=== PATIENT | female | born 1940 | race Caucasian/White ===

== ENCOUNTER → 2024-01-12 14:23 | Outpatient (REF) | payer OTHER, SELFPAY | LOC: RAD 14:23 | PROVIDERS: ATTENDING PHYSICIAN Internal Medicine | DX: R05.1 Acute cough (principal) | CPT/HCPCS: 71046 ==

== ENCOUNTER → 2024-03-15 14:45 | Outpatient (REF) | payer OTHER, SELFPAY | LOC: DHVS 14:45 | PROVIDERS: ATTENDING PHYSICIAN Surgery Vascular Surgery; FAMILY PHYSICIAN Family Medicine | DX: I77.9 Disorder of arteries and arterioles, unspecified (principal) | CPT/HCPCS: 93922; 93925 ==

== ENCOUNTER → 2024-04-02 15:14 | Outpatient (REF) | payer OTHER, SELFPAY | LOC: RAD 15:14 | PROVIDERS: ATTENDING PHYSICIAN Physician Assistant | DX: J44.9 Chronic obstructive pulmonary disease, unspecified (principal); I50.9 Heart failure, unspecified | CPT/HCPCS: 71046 ==

== ENCOUNTER 2024-08-04 18:59 | Emergency (ER) | payer OTHER, SELFPAY ==
[2024-08-04 18:59] VITALS: BMI 40.8
[2024-08-04 19:08] VITALS: BP 166/103
--- NOTE | 2024-08-04 19:10 | ED.PDOC.TRB ---
ED Provider Triage
-
Patient seen by provider in Triage?: Seen in Triage
This is a 83 year old female that was carrying her salid to the table and fell hitting her face and head on the carpet. Patient c/o bilateral knee swelling and pain, facial bleeding. Patient is on a blood thinner.
--- NOTE | 2024-08-04 19:17 | EDRN ---
face cleaned of dried blood and nasal bridge bandage placed.
[2024-08-04 21:43] VITALS: BP 184/75
[2024-08-04 22:00] VITALS: BP 176/77
--- NOTE | 2024-08-04 22:58 | ED.GENMED ---
History of Present Illness
General
Chief Complaint: Fall
Time Seen by Provider: 08/04/24 21:11
History of Present Illness
History of Present Illness:
83-year-old female presents to the emergency department for evaluation of multiple injuries after falling in her kitchen. States she was carrying a salad when she tripped and fell, striking her face on the ground. Denies loss of conscious. Does
take aspirin and Plavix. Also has injuries to the left hand and right elbow. Last tetanus shot was approximately 4 months ago
Past History
Past History
ED Past Medical History: CAD, CHF, COPD, HTN, Hypercholesterolemia, [place], Psychiatric (depression) and Other (gout, ,Chronic kidney disease, Pulmonary edema)
ED Past Surgical History: Cholecystectomy, Orthopedic and Other
Social History
Tobacco: Former smoker
Alcohol: Occasional
Drug: None
Personal:
Living: alone
Review of Systems
Review of Systems
Allergies reviewed?: Yes
All Other Systems: ROS reviewed and negative except as documented in HPI and ROS
Phy Exam
Physical Exam
Physical Exam:
GEN: Well appearing, NAD, WDWN
Eyes: PERRLA, EOMs intact, no scleral icterus. Diffuse bruising across the nasal bridge with a small superficial laceration actively bleeding. There is no nasal septal hematoma
HENT: NCAT, oral mucosa moist. Evidence of dried blood to the roof of the mouth, no obvious dental injuries
Lungs: CTAB, no wheezes, rales, rhonchi, normal chest wall excursion
Cardiac: RRR, no M/R/G, no peripheral edema. Radial pulses 2+ bilat
Abdomen: S, NT, ND, NABS, no masses or hepatosplenomegaly
Neuro: AO x 3, no focal deficits to BUE/BLE, normal sensation throughout
MSK: Diffuse swelling and ecchymosis volar hand with a superficial skin tear overlying the second MCP joint. Range of motion is normal. The right skin tear
Skin: No rashes, petechiae. Normal color, no pallor or jaundice.
Psych: Calm, cooperative, proper hygiene
Course
Orders/Labs/Results
Orders:
Orders
08/04/24 19:[address] Facial Bones W/o Iv Contras Urgent
Comment:
Reason For Exam: Fall onto face.
CT Head W/o Iv Contrast Urgent
Comment:
Reason For Exam: Fall, Blood thinners
Knee, Left 4 or More Views [CR Knee - Left 4 Or More View*] Urgent
Comment:
Reason For Exam: fall, knee pain
Knee, Right 4 or More Views [CR Knee- Right 4 Or More View*] Urgent
Comment:
Reason For Exam: Fall, knee pain
08/04/24 22:10
CR Elbow - Right Min 3 Views Urgent
Comment:
Reason For Exam: fall
CR Hand - Left Min 3 Views Urgent
Comment:
Reason For Exam: fall
08/04/24 22:28
Tranexamic Acid 1,000 mg INH R NOW STA
08/04/24 23:00
Acetaminophen [Tylenol] 1,000 mg PO NOW STA
08/04/24 23:26
Complete Blood Count/No Diff Urgent
Comprehensive Metabolic Panel Urgent
Abnormal Lab Results
08/04/24
23:26
WBC 12.9 H 10^3/uL
(4.8-10.8)
RBC 3.41 L 10^6/uL
(4.20-5.40)
Hct 34.1 L %
(37.0-47.0)
MCV 100.0 H fL
(81.0-99.0)
MCH 35.2 H pg
(27.0-31.0)
08/04/24 23:26
Vital Signs
Initial and Last Documented VS:
Initial Vital Signs
Temp Pulse Resp BP Pulse Ox
98.5 F 87 16 166/103 95
08/04/24 19:08 08/04/24 19:08 08/04/24 19:08 08/04/24 19:08 08/04/24 19:08
Last Documented Vital Signs
Temp Pulse Resp BP Pulse Ox
98.5 F 87 16 176/77 95
08/04/24 19:08 08/04/24 19:08 08/04/24 19:08 08/04/24 22:00 08/04/24 22:00
MDM/Problems Addressed
MDM/Problems Addressed:
Trauma imaging shows no evidence for intracranial hemorrhage or facial bone fracture. There is an abnormal lucency in the maxillary spine that is likely of dental origin and the patient is advised to follow-up with dentist as an outpatient for
further workup of this abnormality. No evidence of fractures imaging of the extremities. Skin tear of the left hand was approximated with Steri-Strips. Patient does not feel comfortable going home tonight however is not open to the consideration
of rehab. She simply feels as though she needs to be observed as she feels somewhat unsteady and fatigued. This is not unreasonable given her advanced age and the fact she resides at home alone. Patient will remain as an ED hold until the morning
with therapy to evaluate the patient however I do feel that she is most likely suitable to be discharged home at which time her family is able to pick her up in the morning.
*Critical Care Note
Total Time (30-74mins, 75-104mins- exclusive of procedures): Not Applicable
ED Attending Note
-
Portions of this chart may have been created with voice recognition software.� Occasional wrong word or��sound alike� substitutions may have occurred due to the inherent limitations of voice recognition software.
Discharge Plan
Departure
Patient Disposition: Home (Routine Discharge)
Date of Disposition: 08/04/24
Time of Disposition: 23:52
Patient with high blood pressure during this ER visit?: No
Discharge Problem:
Contusion of face, Laceration of nose, Skin tear of left hand without complication, Contusion of knee, right, Contusion of knee, left
Instructions: Preventing falls in adults
Prescriptions:
No Action
allopurinol 100 MG tablet
100 mg PO BID
albuterol sulfate 1 PUFF HFA aerosol inhaler
2 puff inhalation R Q4HPRN PRN (Reason: sob)
ezetimibe 10 MG tablet
10 mg PO DAILY
atorvastatin 80 MG tablet
80 mg PO HS
aspirin 81 MG tablet,delayed release (DR/EC)
81 mg PO DAILY
Theragen Tablet
1 tab PO DAILY
lorazepam 0.5 mg tablet
0.5 mg PO Q8H PRN (Reason: mood/sleep )
Patient Comments:
08/04/24: last filled 03/07/23 for 90 tablets at [facility] pharmacy
gabapentin 100 mg capsule
200 mg PO BID
paroxetine HCl 40 mg tablet
40 mg PO DAILY
bupropion HCl 150 mg tablet extended release 24 hr
150 mg PO DAILY
clonidine HCl 0.1 MG tablet
0.2 mg PO BID
diltiazem HCl 240 MG capsule,extended release 24hr
240 mg PO DAILY
clopidogrel 75 MG tablet
75 mg PO DAILY
spironolactone 25 MG tablet
25 mg PO DAILY
furosemide 40 mg Tablet
40 mg PO DAILY
hydralazine 100 mg Tablet
100 mg PO BID
Breztri Aerosphere 160-9-4.8 mcg/actuation HFA aerosol inhaler
2 inh INHALATION R BID
tetrahydrozoline [Visine] 0.05 % Drops
1 drp BOTH EYES QIDPRN PRN (Reason: dry eyes)
loratadine [Claritin] 10 mg Tablet
10 mg PO DAILYPRN PRN (Reason: allergies)
Referrals:
Daniella Marquez MD [Family Provider] -
Activity Restrictions/Additional Instructions:
The steri strips will fall off on their own in 5-7 days. You may begin washing in 24 hours (08/05/2024 evening). Wash the wounds daily with soap and water
Follow up with your dentist regarding the abnormal CT scan finding
Interventions
Interventions:
*General Assessment Last Done: 08/04/24 21:41
ED- Fall Risk Assessment Last Done: 08/04/24 21:43
*ED COVID-19 Vaccine History Last Done: 08/04/24 21:41
ED-Musculoskeletal Assessment Last Done: 08/04/24 21:36
ED- Neurological Assessment Last Done: 08/04/24 21:36
ED-Skin Assessment Last Done: 08/04/24 21:36
Discharge Date and Time
Print Language: FRENCH
[2024-08-04] MEDS: TYLENOL 1000 MG PO (23:08)
[2024-08-04] MEDS: TRANEXAMIC ACID 1000 MG INH (23:09)
[2024-08-04 23:16] VITALS: BP 182/78
[2024-08-04 23:47] LABS: Hematocrit 34.1 % (37.0-47.0); Mean Corp Hgb Conc. 35.2 g/dL (33.0-37.0); Mean Corpuscular Hgb 35.2 pg (27.0-31.0); Mean Platelet Volume 9.2 fL (7.4-10.4); Platelet Count 303 10^3/uL (130-400); Red Blood Cell Count 3.41 10^6/uL (4.20-5.40); White Blood Cell Count 12.9 10^3/uL (4.8-10.8)
[2024-08-04 23:55] LABS: ALT (SGPT) 24 U/L (0-35); AST (SGOT) 34 U/L (14-36); Albumin 4.2 g/dl (3.5-5.0); Alkaline Phosphatase 145 U/L (38-126); Blood Urea Nitrogen 33 mg/dl (7-17); Calcium 9.9 mg/dl (8.4-10.2); Carbon Dioxide 29 mmol/L (22-30); Chloride 95 mmol/L (98-107); Estimated Creatinine Clearance 35 ml/min; Glucose 94 mg/dl (70-99); Potassium 4.3 mmol/L (3.5-5.1); Sodium 134 mmol/L (135-145); Total Bilirubin 0.9 mg/dl (0.2-1.3); Total Protein 6.8 g/dl (6.3-8.2)
[2024-08-05 00:20] VITALS: BP 160/76
[2024-08-05] MEDS: LIPITOR 80 MG PO (00:32)
[2024-08-05] MEDS: NEURONTIN 200 MG PO ×2 (00:32→07:39)
[2024-08-05 01:00] VITALS: BP 171/74
[2024-08-05] MEDS: SYMBICORT 160/4.5 MCG INHALER 2 PUFF INH ×2 (01:37→08:15)
[2024-08-05 02:00] VITALS: BP 175/69
[2024-08-05] MEDS: APRESOLINE 100 MG PO ×2 (02:08→07:38)
[2024-08-05] MEDS: CATAPRES 0.2 MG PO ×2 (02:08→09:39)
[2024-08-05] MEDS: TYLENOL 650 MG PO ×2 (03:43→07:38)
[2024-08-05 07:14] VITALS: BP 157/61
[2024-08-05] MEDS: ALDACTONE 25 MG PO (07:39)
[2024-08-05] MEDS: PLAVIX 75 MG PO (07:39)
[2024-08-05] MEDS: CARDIZEM CD 240 MG PO (07:39)
[2024-08-05] MEDS: WELLBUTRIN SR (12 hour sustained release) 150 MG PO (08:44)
[2024-08-05] MEDS: ZETIA 10 MG PO (08:44)
[2024-08-05] MEDS: PAXIL 40 MG PO (08:45)
[2024-08-05 09:13] VITALS: BP 164/69; PULSE 82; O2SAT 95
--- NOTE | 2024-08-05 09:26 | CM ---
nurse unit manager reviewed patient's chart and met with patient and patient lives alone in a 2 story home, with 1 step to enter, patient is independent with adl's and uses a cane or walker with ambulation, patient drives. Patient was seen by physical
therapy and recommendation is for home, no needs. nurse unit manager discussed visiting nurses after discharge and patient declined visiting nurses.
Pharmacy: [facility]
PCP: Dr. Marquez
Plan; Patient to return to home at discharge, no needs, per patient her son will pick her up when cleared by physician.
--- NOTE | 2024-08-05 10:32 | PTCARENOTE ---
Pt walked w/ PT/OT, cleared to go home w/ son. Discharge underway, awaiting her ride. VSS. Varying traumatic injuries stable, no active bleeding. PT states she is comfortable.
[2024-08-05 11:02] VITALS: BP 133/75
== END 2024-08-05 11:37 | disposition home or self-care (01) ==
LOC: EMR 18:59
PROVIDERS: Physician Assistant; EMERGENCY PHYSICIAN Student in an Organized Health Care Education/Training Program; FAMILY PHYSICIAN Family Medicine
DX: S01.21XA Laceration without foreign body of nose, initial encounter (principal); S61.412A Laceration without foreign body of left hand, initial encounter; S59.901A Unspecified injury of right elbow, initial encounter; S80.01XA Contusion of right knee, initial encounter; S80.02XA Contusion of left knee, initial encounter; W01.0XXA Fall on same level from slipping, tripping and stumbling without subsequent striking against object, initial encounter; I13.0 Hypertensive heart and chronic kidney disease with heart failure and stage 1 through stage 4 chronic kidney disease, or unspecified chronic kidney disease; I50.9 Heart failure, unspecified; N18.9 Chronic kidney disease, unspecified; E78.00 Pure hypercholesterolemia, unspecified; F32.A Depression, unspecified; I25.10 Atherosclerotic heart disease of native coronary artery without angina pectoris; J44.9 Chronic obstructive pulmonary disease, unspecified; Z79.82 Long term (current) use of aspirin; Z87.891 Personal history of nicotine dependence; Z90.49 Acquired absence of other specified parts of digestive tract
CPT/HCPCS: 99284; 94640; 70450; 70486; 73080; 73130; 73564; 80053; 85027

== ENCOUNTER 2025-02-02 04:56 | Emergency (ER) | payer OTHER, SELFPAY ==
[2025-02-02 04:58] VITALS: BP 178/80
[2025-02-02 05:19] VITALS: BMI 41.3
[2025-02-02] MEDS: TYLENOL 1000 MG PO (05:30)
[2025-02-02] MEDS: ULTRAM 50 MG PO (06:44)
--- NOTE | 2025-02-02 06:47 | ED.GENMED ---
History of Present Illness
General
Chief Complaint: Musculo-Skeletal Complaint
Source: patient and family
Exam Limitations: none
Time Seen by Provider: 02/02/25 06:03
Nursing documentation reviewed up to this point in time: agreed with
History of Present Illness
History of Present Illness:
The patient is a pleasant 84-year-old female with a past medical history of coronary artery disease, COPD, and CHF who comes in with complaints of right wrist pain after a fall that occurred at 11 PM last night. Patient reports that when she got
into bed last night, she felt slightly dizzy and held onto a post on her bed frame. Unfortunately, the top of the post broke off, causing her to fall down to the ground. Patient reports she may have hit her head on the wall. She was able to get
up and walk down the steps after the fall. The patient denies headache and scalp pain. She denies any new neck pain and back pain. She denies chest pain. She denies hip pain. Patient complains of isolated right wrist pain. She denies any
recent injuries such as fever, nausea, vomiting, chest pain and shortness of breath. She reports that the medication she takes before bedtime commonly makes her feel dizzy and she does not seem to feel that this dizziness was out of the ordinary.
She denies vision changes, weakness and numbness. Patient is not on anticoagulation
Past History
Past History
ED Past Medical History: CAD, CHF, COPD, HTN, Hypercholesterolemia, [place], Psychiatric (depression) and Other (gout, ,Chronic kidney disease, Pulmonary edema)
ED Past Surgical History: Cholecystectomy, Orthopedic and Other
Social History
Tobacco: Former smoker
Alcohol: Occasional
Drug: None
Personal:
Living: alone
Employment: Other
Family History
Family History: Other
Review of Systems
Review of Systems
Allergies reviewed?: Yes
Other source history: family
All Other Systems: ROS reviewed and negative except as documented in HPI and ROS
Constitutional: Reports no symptoms
EENT: Reports no symptoms
Respiratory: Reports no symptoms
Cardiac: Reports no symptoms
ABD/GI: Reports no symptoms
: Reports no symptoms
Musculoskeletal: Reports no symptoms
Skin: Reports no symptoms
Neurological: Reports dizzy (not currently. frequently at night after she takes her meds)
Endocrine: Reports no symptoms
Hematologic/Lymphatic: Reports no symptoms
Psychiatric: Reports no symptoms
Phy Exam
Physical Exam
Physical Exam:
Physical Exam
General: no apparent distress, not acutely ill. Atraumatic appearing face and head. I cannot palpate any scalp contusions or areas of scalp tenderness.
Neck: supple. no meningeal signs. normal psoterior pharynx. Nontender
Heart: s1/s2 regular rate and rhythm, no chest wall tenderness. No reproducible chest pain when taking a deep breath
Lungs: no acute respiratory distress. Bilateral wheeze. Speaks in full sentences without any sign of respiratory distress
Abdomen: normal bowel sounds. not tender. no CVAT
Neuro: alert and orientedx3. no focal neurological deficits. Normal finger-nose. 5 out of 5 strength in all extremities.
Skin: no rash
Psychiatric: well kept. interactive and cooperative
Extremities: Trace edema bilateral lower extremities. Nontender pelvis and hips. Strong pulses in bilateral upper extremities. Excellent cap refill in bilateral upper extremities. Mild swelling of dorsal aspect of right
wrist with bony tenderness along medial right wrist.
Course
Orders/Labs/Results
Orders:
Orders
02/02/25 05:07
CR Forearm - Right 2 View Urgent
Comment:
Reason For Exam: fall
Wrist, Right 3 Views [CR Wrist - Right Min 3 Views] Urgent
Comment:
Reason For Exam: fall
02/02/25 05:22
Acetaminophen [Tylenol] 1,000 mg PO NOW STA
02/02/25 06:22
Electrocardiogram (*1) Urgent
Reason for Study: Vertigo / Dizzy
EKG- Treatment ONCE
Tramadol HCl [Ultram] 50 mg PO NOW STA
02/02/25 06:48
Ipratropium/Albuterol Sulfate [Duoneb] 3 ml INH R NOW ONE
02/02/25 07:17
Splints/Slings/Crut- Treatment ONCE
Crutches: No
Location: Right
Type of Splint: Volar
02/02/25 07:23
PT Consult [Pt Eval And Treat] Urgent
Activity Level: Out of Bed-Early Mobility
Vital Signs
Initial and Last Documented VS:
Initial Vital Signs
Temp Pulse Resp BP Pulse Ox
97.8 F 96 26 178/80 96
02/02/25 04:58 02/02/25 04:58 02/02/25 04:58 02/02/25 04:58 02/02/25 04:58
Last Documented Vital Signs
Temp Pulse Resp BP Pulse Ox
97.8 F 83 20 153/67 95
02/02/25 04:58 02/02/25 08:00 02/02/25 08:00 02/02/25 08:00 02/02/25 08:00
MDM/Problems Addressed
Differential Diagnosis Includes:
Acute right wrist fracture, right wrist contusion, right wrist dislocation, closed head injury
MDM/Problems Addressed:
Patient presents with acute right wrist pain after fall
Chronic conditions affecting care: Cardiomyopathy
Acute Exacerbation and/or Progression of Chronic Illness:
Patient does not report any increased work of breathing, shortness of breath or chest pain. There is no sign of acute CHF exacerbation. She appears comfortable and is breathing comfortably
Acute Exacerbation and/or Progression of Chronic Illness: Cardiomyopathy
*Radiology
Radiology exam reviewed: preliminary read by ED provider (Right wrist x-ray and forearm reviewed by me. Right radial fracture seen) and radiology read reviewed
*Pulse Oximetry
Patient hypoxic: no
*EKG
Interpreted by ED Provider?: Yes
Interpretation: abnormal
Comparison EKG: no changes
Rate: normal
Rhythm: sinus
[place]: normal axis
Interval: normal interval
QRS Pattern: right bundle branch block
Ischemia: non-specific ST changes
*Complaint Analyst Interpretation
Rate: Complaint Analyst- N/A
*Critical Care Note
Total Time (30-74mins, 75-104mins- exclusive of procedures): Not Applicable
Data Reviewed
Review of Other/Old Records Reveals: Radiology Studies (CT head reviewed from 08/2024 which shows no acute abnormality)
Source: patient and family (Son who is at the bedside)
Further Testing Considered But Not Given:
I consider doing a CT head, however, after reviewing patient's past medical records, there is no sign that she is on anticoagulation. Additionally, the fall occurred 8 hours prior to her coming to the ED and she has absolutely no headache, vision
changes, weakness or numbness. It is highly doubtful she has an intracranial injury
Update Note
Update Note:
8:05 AM. Right upper extremity splint checked by me. Excellent cap refill. Patient has good sensation and movement of fingers
Patient remains well and comfortable appearing. She still has no headache, nausea, vomiting to suggest brain injury.
Additionally, patient able to get up and walk steadily with walker and feels comfortable going home. Physical therapy came to give patient suggestions on how to more safely walk down the steps in her home.
I did consider doing blood work, however, patient reports that the dizziness she experienced is something she has had several times before and it did not concern her. She reports that she generally feels this way after taking her medication before
bedtime. She had a normal neurological exam.
ED Attending Note
-
Portions of this chart may have been created with voice recognition software.� Occasional wrong word or��sound alike� substitutions may have occurred due to the inherent limitations of voice recognition software.
Discharge Plan
Departure
Patient Disposition: Home (Routine Discharge)
Date of Disposition: 02/02/25
Time of Disposition: 08:56
Patient with high blood pressure during this ER visit?: Yes
Condition: Good
Discharge Problem:
Closed fracture of right wrist
Instructions: BLOOD PRESSURE, Wrist Fracture
Prescriptions:
New
tramadol 50 mg tablet
50 mg PO BID PRN (Reason: Pain) Qty: 12 0RF
No Action
allopurinol 100 MG tablet
100 mg PO BID
albuterol sulfate 1 PUFF HFA aerosol inhaler
2 puff inhalation R Q4HPRN PRN (Reason: sob)
ezetimibe 10 MG tablet
10 mg PO DAILY
atorvastatin 80 MG tablet
80 mg PO HS
aspirin 81 MG tablet,delayed release (DR/EC)
81 mg PO DAILY
Theragen Tablet
1 tab PO DAILY
lorazepam 0.5 mg tablet
0.5 mg PO Q8H PRN (Reason: mood/sleep )
Patient Comments:
08/04/24: last filled 03/07/23 for 90 tablets at [facility] pharmacy
gabapentin 100 mg capsule
200 mg PO BID
paroxetine HCl 40 mg tablet
40 mg PO DAILY
bupropion HCl 150 mg tablet extended release 24 hr
150 mg PO DAILY
clonidine HCl 0.1 MG tablet
0.2 mg PO BID
diltiazem HCl 240 MG capsule,extended release 24hr
240 mg PO DAILY
clopidogrel 75 MG tablet
75 mg PO DAILY
spironolactone 25 MG tablet
25 mg PO DAILY
furosemide 40 mg Tablet
40 mg PO DAILY
hydralazine 100 mg Tablet
100 mg PO BID
Breztri Aerosphere 160-9-4.8 mcg/actuation HFA aerosol inhaler
2 inh INHALATION R BID
tetrahydrozoline [Visine] 0.05 % Drops
1 drp BOTH EYES QIDPRN PRN (Reason: dry eyes)
loratadine [Claritin] 10 mg Tablet
10 mg PO DAILYPRN PRN (Reason: allergies)
Referrals:
Topher Gonzalez MD [Active] - (Call today to schedule the next open appointment)
Daniella Marquez MD [Family Provider] -
Activity Restrictions/Additional Instructions:
Please keep your wrist splint on at all times. Please do your best to keep it dry. Please call orthopedic office today to schedule an appointment to see within 1 week. Take 1000 mg of Tylenol every 6 hours as needed for pain. If pain
intensifies, you can take tramadol along with the Tylenol
Interventions
Interventions:
*Risk Screen - Suicide Last Done: 02/02/25 05:44
*General Assessment Last Done: 02/02/25 05:33
*Neglect/Abuse Screening Last Done: 02/02/25 05:44
*ED- Fall Risk Assessment Last Done: 02/02/25 05:33
*ED COVID-19 Vaccine History Last Done: 02/02/25 05:33
ED-Musculoskeletal Assessment Last Done: 02/02/25 05:33
ED- Neurological Assessment Last Done: 02/02/25 05:33
ED-Skin Assessment Last Done: 02/02/25 05:33
Discharge Date and Time
Print Language: MALAGASY
[2025-02-02] MEDS: DUONEB 3 ML INH (07:43)
[2025-02-02 08:00] VITALS: BP 153/67
[2025-02-02 09:03] VITALS: BP 165/68; BP 165/72
[2025-02-02 09:10] VITALS: BP 166/69
--- NOTE | 2025-02-02 09:15 | EDRN ---
Reviewed discharge instructions with patient. Verbalized understanding. Taken to car in wheelchair.
== END 2025-02-02 09:15 | disposition home or self-care (01) ==
LOC: EMR 04:56
PROVIDERS: EMERGENCY PHYSICIAN Emergency Medicine; FAMILY PHYSICIAN Family Medicine
DX: S52.591A Other fractures of lower end of right radius, initial encounter for closed fracture (principal); W19.XXXA Unspecified fall, initial encounter; I42.9 Cardiomyopathy, unspecified; J44.9 Chronic obstructive pulmonary disease, unspecified; E78.00 Pure hypercholesterolemia, unspecified; I13.0 Hypertensive heart and chronic kidney disease with heart failure and stage 1 through stage 4 chronic kidney disease, or unspecified chronic kidney disease; I25.10 Atherosclerotic heart disease of native coronary artery without angina pectoris; I50.9 Heart failure, unspecified; N18.9 Chronic kidney disease, unspecified; R42 Dizziness and giddiness; Z87.891 Personal history of nicotine dependence; Z90.49 Acquired absence of other specified parts of digestive tract
CPT/HCPCS: 29125; 94640; 99284; 73090; 73110; 93005

== ENCOUNTER → 2025-04-18 14:29 | Outpatient (REF) | payer OTHER, SELFPAY | LOC: DHVS 14:29 | PROVIDERS: ATTENDING PHYSICIAN Surgery Vascular Surgery | DX: I77.9 Disorder of arteries and arterioles, unspecified (principal) | CPT/HCPCS: 93922 ==

== ENCOUNTER 2025-10-07 12:02 | Emergency (ER) | payer OTHER, SELFPAY ==
[2025-10-07 12:10] VITALS: BP 136/59
[2025-10-07 12:29] VITALS: BMI 39.6
[2025-10-07 13:58] VITALS: BP 166/66
--- NOTE | 2025-10-07 14:13 | ED.GENMED ---
History of Present Illness
General
Chief Complaint: Fall
Time Seen by Provider: 10/07/25 13:18
History of Present Illness
History of Present Illness:
Patient is a 84-year-old woman with history of CAD on aspirin Plavix, COPD, hyperlipidemia presenting to the emergency department after a fall. Patient states that she was leaning forward to grape picker something and then fell hitting her head. She
did not pass out. She is on Plavix. She does state that she fell mostly on her right side and is complaining of right shoulder and right knee pain. This happened yesterday. She states that everything is more sore today which is why she came in.
No numbness tingling. She has been able to ambulate.
Past History
Past History
ED Past Medical History: CAD, CHF, COPD, HTN, Hypercholesterolemia, SC, Psychiatric (depression) and Other (gout, ,Chronic kidney disease, Pulmonary edema)
ED Past Surgical History: Cholecystectomy, Orthopedic and Other
Social History
Tobacco: Former smoker
Alcohol: Occasional
Drug: None
Personal:
Living: alone
Employment: Other
Family History
Family History: Other
Phy Exam
Physical Exam
Physical Exam:
GENERAL: no acute distress
HEENT: atraumatic, extraocular muscles intact, no signs of entrapment, dentition intact, no other obvious trauma
NECK: no midline tenderness, normal range of motion, NEXUS criteria negative, no other obvious trauma
BACK: no midline tenderness, no other obvious trauma
CHEST: no tenderness, no flail segment, no subcutaneous emphysema, no other obvious trauma
LUNGS: clear to auscultation bilaterally
CARDIOVASCULAR: regular rate and rhythm
ABDOMEN: soft, non-tender, no masses, no other obvious trauma
PELVIS: stable, no obvious injury
EXTREMITIES: moving all extremities, distal pulses intact, no other obvious trauma, scattered bruising, mild tenderness to the entire right upper extremity and right lower extremity though worse at the shoulder and knee, 5 out of 5 strength in the
right upper and lower extremities
NEUROLOGIC: awake, alert x 3, no focal deficits
Course
Orders/Labs/Results
Orders:
Orders
10/07/25 12:[address] [CT Head W/o Iv Contrast] Urgent
Comment:
Reason For Exam: fall on plavix
10/07/25 12:26
CT Cervical Spine W/o Iv Contr Urgent
Comment:
Reason For Exam: fall
10/07/25 14:12
Acetaminophen [Tylenol] 1,000 mg PO NOW STA
CR Knee- Right 4 Or More View* Urgent
Comment:
Reason For Exam: fall tenderness
CR Shoulder, Trauma - Right Urgent
Comment:
Reason For Exam: fall, tenderness
Vital Signs
Initial and Last Documented VS:
Initial Vital Signs
Temp Pulse Resp BP Pulse Ox
98.7 F 95 18 136/59 95
10/07/25 12:10 10/07/25 12:10 10/07/25 12:10 10/07/25 12:10 10/07/25 12:10
Last Documented Vital Signs
Temp Pulse Resp BP Pulse Ox
98.7 F 89 16 166/66 95
10/07/25 12:10 10/07/25 13:58 10/07/25 13:58 10/07/25 13:58 10/07/25 14:15
MDM/Problems Addressed
Differential Diagnosis Includes:
Patient is a 84-year-old woman presenting to the emergency department with shoulder pain knee pain after a fall yesterday. On arrival vitals unremarkable and exam does show scattered bruising and more focal tenderness of the right shoulder and
right knee though the entire upper and lower extremity on the right side feel sore per the patient. No bony tenderness. Concern for traumatic intracranial injury versus fracture though less likely. She does have good strength. Will obtain CT
scan and x-rays. Will pain control. I did offer patient physical therapy eval for possible rehab placement though patient declines and states that she does feel steady on her feet and is comfortable being discharged if there is no fractures.
Patient's son is at bedside and is in agreement.
*Pulse Oximetry
SaO2: 95
Oxygen Mode of Delivery: Room air
Patient hypoxic: no
*Critical Care Note
Total Time (30-74mins, 75-104mins- exclusive of procedures): Not Applicable
Update Note
Update Note:
CT scans negative. X-ray of the knee per my interpretation no obvious fracture. X-ray of the shoulder unremarkable per my interpretation. Patient ambulatory with her walker. Patient requesting discharge. It is safe for her to be discharged
home. Strict return precautions given
ED Attending Note
-
Portions of this chart may have been created with voice recognition software.� Occasional wrong word or��sound alike� substitutions may have occurred due to the inherent limitations of voice recognition software.
Discharge Plan
Departure
Patient Disposition: Home (Routine Discharge)
Date of Disposition: 10/07/25
Time of Disposition: 15:47
Patient with high blood pressure during this ER visit?: Yes
Discharge Problem:
Fall
Instructions: Preventing falls in adults
Prescriptions:
No Action
allopurinol 100 MG tablet
100 mg PO BID
albuterol sulfate 1 PUFF HFA aerosol inhaler
2 puff inhalation R Q4HPRN PRN (Reason: sob)
ezetimibe 10 MG tablet
10 mg PO DAILY
atorvastatin 80 MG tablet
80 mg PO HS
aspirin 81 MG tablet,delayed release (DR/EC)
81 mg PO DAILY
Theragen Tablet
1 tab PO DAILY
lorazepam 0.5 mg tablet
0.5 mg PO Q8H PRN (Reason: mood/sleep )
Patient Comments:
08/04/24: last filled 03/07/23 for 90 tablets at [facility] pharmacy
gabapentin 100 mg capsule
200 mg PO BID
paroxetine HCl 40 mg tablet
40 mg PO DAILY
bupropion HCl 150 mg tablet extended release 24 hr
150 mg PO DAILY
clonidine HCl 0.1 MG tablet
0.2 mg PO BID
diltiazem HCl 240 MG capsule,extended release 24hr
240 mg PO DAILY
clopidogrel 75 MG tablet
75 mg PO DAILY
spironolactone 25 MG tablet
25 mg PO DAILY
furosemide 40 mg Tablet
40 mg PO DAILY
hydralazine 100 mg Tablet
100 mg PO BID
Breztri Aerosphere 160-9-4.8 mcg/actuation HFA aerosol inhaler
2 inh INHALATION R BID
tetrahydrozoline [Visine] 0.05 % Drops
1 drp BOTH EYES QIDPRN PRN (Reason: dry eyes)
loratadine [Claritin] 10 mg Tablet
10 mg PO DAILYPRN PRN (Reason: allergies)
tramadol 50 mg tablet
50 mg PO BID PRN (Reason: Pain) Qty: 12 0RF
Referrals:
Daniella Marquez MD [Family Provider, Family Practice]
Activity Restrictions/Additional Instructions:
You were seen in the Emergency Department today for . Of fall while you were here we performed CT scans and x-rays, which was reassuring.
We would like for you to follow up with your primary care physician for further evaluation. If you experience fever, worsening of your symptoms, or develop any other new or concerning symptoms, please return to the Emergency Department immediately.
Please see the attached sheet for additional information.
Interventions
Interventions:
*Risk Screen - Suicide Last Done: 10/07/25 12:10
*General Assessment Last Done: 10/07/25 12:10
*Neglect/Abuse Screening Last Done: 10/07/25 12:10
*ED- Fall Risk Assessment Last Done: 10/07/25 12:29
*ED COVID-19 Vaccine History Last Done: 10/07/25 12:13
*ED Influenza Vaccine History Last Done: 10/07/25 12:13
ED-Musculoskeletal Assessment Last Done: 10/07/25 12:30
ED- Neurological Assessment Last Done: 10/07/25 12:30
ED-Skin Assessment Last Done: 10/07/25 12:41
Discharge Date and Time
Print Language: DIVEHI
[2025-10-07] MEDS: TYLENOL 1000 MG PO (14:25)
== END 2025-10-07 16:36 | disposition home or self-care (01) ==
LOC: EMR 12:02
PROVIDERS: EMERGENCY PHYSICIAN Student in an Organized Health Care Education/Training Program; FAMILY PHYSICIAN Family Medicine
DX: S49.91XA Unspecified injury of right shoulder and upper arm, initial encounter (principal); W19.XXXA Unspecified fall, initial encounter; I25.10 Atherosclerotic heart disease of native coronary artery without angina pectoris; J44.9 Chronic obstructive pulmonary disease, unspecified; E78.00 Pure hypercholesterolemia, unspecified; F32.A Depression, unspecified; I13.0 Hypertensive heart and chronic kidney disease with heart failure and stage 1 through stage 4 chronic kidney disease, or unspecified chronic kidney disease; N18.9 Chronic kidney disease, unspecified; Z79.02 Long term (current) use of antithrombotics/antiplatelets; Z87.891 Personal history of nicotine dependence; Z90.49 Acquired absence of other specified parts of digestive tract
CPT/HCPCS: 99284; 70450; 72125; 73030; 73564